=== PATIENT | male | born 1955 | race Caucasian/White ===

== ENCOUNTER 2017-01-22 07:48 | Inpatient (IN) ==
[2017-01-19 17:39] LABS: Appearance,Urine CLEAR; Bilirubin,Urine NEG (NEG); Color,Urine YELLOW; Glucose,Urine (UA) NEGATIVE (NEG); Leukocyte Esterase,Urine NEG /uL (NEG); Nitrate,Urine NEG (NEG); Protein,Urine NEG (NEG); Specific Gravity,Urine 1.015 (1.000-1.035); Urine Blood NEG mg/dL (<0.03); Urobilinogen,Urine NEG (NEG)
[2017-01-19 17:49] LABS: Blood Urea Nitrogen 17 mg/dl (8-23)
[2017-01-19 18:12] LABS: Basophils # (Auto) 0 K/mcL (0.0-0.3); Basophils % (Auto) 0.5 % (0.0-2.0); Eosinophils # (Auto) 0.3 K/mcL (0.0-0.7); Eosinophils % (Auto) 4.2 % (0.0-7.0); Granulocytes % (Auto) 57.8 % (38.0-78.0); Lymphocytes # (Auto) 2.3 K/mcL (1.5-4.8); Lymphocytes % (Auto) 29.3 % (15.5-49.0); Mean Cell Volume 88.5 fL (80.0-100.0); Mean Corpuscular HGB Conc 34.6 g/dL (31.0-36.0); Mean Corpuscular Hemoglobin 30.7 pg (26.0-34.0); Monocytes # (Auto) 0.7 K/mcL (0.1-0.9); Monocytes % (Auto) 8.2 % (1.0-12.0); Platelet Count 278 K/mcL (140-440); RBC 4.63 M/mcL (4.50-5.90); Red Cell Distribution Width 12.8 % (11.5-14.5)
[~2017-01-22 07:48] MED LIST: ceFAZolin 1 GM VIAL IV SCH
[2017-01-22] MEDS ORDERED: MIDAZOLAM 5 MG/5 ML VIAL IV ONE (10:10)
[2017-01-22] MEDS ORDERED: SUCCINYLCHOLINE 20 MG/ML ML IV ONE (10:10)
[2017-01-22] MEDS ORDERED: PROPOFOL 200 MG/20 ML VIAL IV ONE (10:10)
[2017-01-22] MEDS ORDERED: LIDOCAINE HCL/PF 100 MG/5 ML SYRINGE IV ONE (10:10)
[2017-01-22] MEDS ORDERED: DEXAMETHASONE 10 MG/ML VIAL IV ONE (10:10)
[2017-01-22] MEDS ORDERED: ONDANSETRON 4 MG/2 ML VIAL IV ONE (10:10)
[2017-01-22] MEDS ORDERED: KETAMINE 100 MG/ML ML IV ONE (10:10)
[2017-01-22] MEDS ORDERED: fentaNYL 250 MCG/5 ML VIAL IV ONE (10:10)
[2017-01-22] MEDS ORDERED: GENTAMICIN SULFATE 800 MG/20 ML VIAL IR ONE (11:00)
[2017-01-22] MEDS ORDERED: ONDANSETRON 4 MG/2 ML VIAL IV PRN ×2 (11:52→12:15)
[2017-01-22] MEDS ORDERED: FLUMAZENIL 0.1 MG/ML ML IV PRN (11:52)
[2017-01-22] MEDS ORDERED: HYDROmorphone 2 MG/ML SYRINGE IV PRN (11:52)
[2017-01-22] MEDS ORDERED: PROMETHAZINE 25 MG/ML VIAL IV PRN (11:52)
[2017-01-22] MEDS ORDERED: MEPERIDINE 25 MG/ML SYRINGE IV PRN (11:52)
[2017-01-22] MEDS ORDERED: diphenhydrAMINE 50 MG/ML VIAL IV PRN (11:52)
[2017-01-22] MEDS ORDERED: BENZOCAINE/MENTHOL 1 LOZENGE PO PRN ×2 (11:52→12:15)
[2017-01-22] MEDS ORDERED: ePHEDrine 50 MG/ML AMPUL IV PRN (11:52)
[2017-01-22] MEDS ORDERED: IPRATROPIUM/ALBUTEROL 3 ML AMPUL.NEB NEB PRN (11:52)
[2017-01-22] MEDS ORDERED: LACTATED RINGERS 250 ML IV PRN (11:52)
[2017-01-22] MEDS ORDERED: NALOXONE HCL 0.4 MG/ML VIAL IV PRN (11:52)
[2017-01-22] MEDS ORDERED: LACTATED RINGERS 1,000 ML IV SCH (12:00)
[2017-01-22] MEDS ORDERED: MAGNESIUM HYDROXIDE 30 ML ORAL.SUSP PO PRN (12:15)
[2017-01-22] MEDS ORDERED: POLYETHYLENE GLYCOL 3350 17 GM PACKET PO PRN (12:15)
[2017-01-22] MEDS ORDERED: BISACODYL 10 MG SUPP.RECT PR PRN (12:15)
[2017-01-22] MEDS ORDERED: FLEETS ADULT ENEMA PR PRN (12:15)
[2017-01-22] MEDS ORDERED: HYDROcodone/APAP 10/325MG TABLET PO PRN (12:15)
[2017-01-22] MEDS ORDERED: TRANEXAMIC ACID 1,000 MG/10 ML VIAL IV ONE (12:15)
[2017-01-22] MEDS ORDERED: DEXTROSE 5%-1/2NS 1,000 ML IV SCH (12:15)
[2017-01-22] MEDS ORDERED: METHOCARBAMOL 750 MG TABLET PO PRN (12:15)
--- NOTE | 2017-01-22 12:15 | Brief Operative Note ---
Date of procedure: 01/22/17 Pre-op diagnosis: DJD R ankle Post-op diagnosis: same Procedure: R total ankle replacement Grafts/Implants: Yes ([facility] total ankle) Anesthesia: ERA Surgeon: Tomasz Del Castillo Laboratory Geneticist: Tony Tang Estimated blood loss (cc): 100 Tourniquet Time (Minutes): 81 Specimens Removed/Pathology: none sent Condition: stable Disposition: PACU
[2017-01-22] MEDS: fentaNYL 100 MCG/2 ML VIAL IV PRN ×2 (12:33→12:44)
[2017-01-22] MEDS ORDERED: ACETAMINOPHEN 1,000 MG/100 ML BOTTLE IV ONE (12:39)
--- NOTE | 2017-01-22 13:12 | XRay Report ---
CLINICAL INFORMATION: Total ankle replacement COMPARISON: None. FINDINGS: Total ankle replacement is anatomically aligned. There is no osseous abnormality. Talocalcaneal joint is normal. Cast material obscures bone detail IMPRESSION: Negative Interpreted and Authenticated by: Hever Beck 01/22/17
--- NOTE | 2017-01-22 13:25 | Operative Note ---
DATE OF OPERATION: 01/22/2017 PREOPERATIVE DIAGNOSIS: Degenerative joint disease right ankle. POSTOPERATIVE DIAGNOSIS: Degenerative joint disease right ankle. OPERATION: Right total ankle replacement. SURGEON: Tomasz Del Castillo MD ARCH SUPPORT TECHNICIAN: Tony Tang PA-C ANESTHESIA: General. TOURNIQUET TIME: 81 minutes. ESTIMATED BLOOD LOSS: 100 mL SUMMARY OF PROCEDURE: General anesthesia was attained. The right leg was prepped and draped. An anterior incision was made 13 cm in length just lateral to the tibialis anterior. The incision was taken down to the extensor retinacular layer. This was split longitudinally and marked with a suture. The tibialis anterior was retracted medially. The interval between the tibialis anterior and the extensor hallucis longus was developed. The anterior ankle was exposed with care being taken to protect the neurovascular bundle. The cutting guide was placed on the tibia and pinned into place. The corner cutting guide was placed over the pins. The corner cuts were made. The tibia sized to a size 4 long. The dorsal, medial and lateral cuts were made under mini C-arm control. Using the corner chisel the bone was mobilized and then ultimately removed using a freer and corkscrew type device. Attention was then turned to the talus. The Infinity cutting guide was placed onto the talus. This was pinned. The position was adjusted to be lined up with the tibia and maximize coverage of the talus with no overhang in the gutters. The dorsal cut was made. I then cleaned out the gutters on both sides using a rongeur. The talus sized to a 4. The posterior cut was made followed by preparation of the bevel cuts using the Infinity reaming system. The trial was done. The best combination of stability with full dorsiflexion and 40 degrees of plantarflexion was with an 8 mm insert. The components were next implanted using the impactor system for the tibia and talus. The insertion of the polyethylene was done using the insertion guide system. Final x-rays confirm satisfactory alignment, balance and debridement of the gutters. The wound was irrigated. We used IrriSept as well as jet lavage. The tourniquet was let down. All bleeding points were coagulated. The extensor retinaculum was closed with interrupted 2-0 Monocryl. The subcutaneous tissue was closed with interrupted 2-0 Monocryl. The skin was closed with mattress sutures of 3-0 nylon. A sterile compressive dressing was applied followed by a Abel boot. The sponge and needle count was correct. The patient tolerated the procedure well and was taken to the recovery room in stable condition. ANANTHF:preet Job ID: [id number] Doc ID: [id number] Tomasz Del Castillo MD
[2017-01-22] MEDS ORDERED: 0.9 % SODIUM CHLORIDE 10 ML SYRINGE IV SCH (14:00)
[2017-01-22] MEDS ORDERED: ceFAZolin 1 GM VIAL IV SCH (18:00)
[2017-01-22] MEDS ORDERED: DOCUSATE SODIUM 100 MG CAPSULE PO SCH (21:00)
[2017-01-22] MEDS ORDERED: SENNOSIDES 1 TABLET PO SCH (21:00)
[2017-01-22] MEDS ORDERED: ASPIRIN 325 MG ENTERIC COATED TABLET PO SCH (21:00)
[2017-01-23] MEDS ORDERED: MULTIVIT,THER IRON,CA,FA & MIN 1 TABLET PO SCH (09:00)
== END 2017-01-22 19:35 | disposition home or self-care (01) | DRG 469 ==
LOC: MEDSUR 07:48
PROVIDERS: ADMIT Orthopaedic Surgery Foot and Ankle Surgery; ATTEND Orthopaedic Surgery Foot and Ankle Surgery